=== PATIENT | female | born 1995 | race Caucasian/White ===

== ENCOUNTER 2020-07-27 14:56 | Emergency (ER) | payer OTHER, SELFPAY ==
--- NOTE | 2020-07-27 15:03 | ED.GENADULT ---
HPI - General Adult General Chief complaint: Animal Bite Stated complaint: cat scratch on left palm Time Seen by Provider: 07/27/20 15:04 Source: patient Mode of arrival: ambulatory Limitations: no limitations History of Present Illness HPI narrative: 25-year-old female patient presents to the [facility] with complaints of a cat bite to the left palm. Patient states that it was her cat that bit her yesterday. Patient states that she was trying to get her cat who was caught on a dresser off and the cat got scared and excellently bit her. Patient states the cat is up-to-date on all the vaccines she is aware of. Patient states that she did clean the wound with some soap and water and put some Neosporin on it today. Patient states the pain she describes as throbbing. Related Data Allergies Allergy/AdvReac Type Severity Reaction Status Date / Time amoxicillin Allergy Hives Verified 07/27/20 15:23 cephapirin Allergy Anaphylaxis Verified 07/27/20 15:23 Review of Systems Review of Systems: Narrative: CONSTITUTIONAL: Denies fever, chills, or sweats. EYES: Denies visual changes, redness, or discharge. ENT: Denies rhinorrhea, congestion, sore throat, or otalgia. CARDIOVASCULAR: Denies chest pain, palpitations, or edema. RESPIRATORY: Denies cough or dyspnea. GASTROINTESTINAL: Denies abdominal pain, nausea, vomiting, or diarrhea. GENITOURINARY: Denies dysuria or hematuria. SKIN: Denies rash or itching. Positive cat bite to left palm MUSCULOSKELETAL: Denies back pain, joint pain, or myalgia. NEUROLOGIC: Denies headache, numbness, or weakness. PSYCHIATRIC: Denies anxiety or depression. PMFSH Comments At the time of my signature I agree with nursing past medical history, surgical, social, and family history. There is no relevant family history pertinent to the presenting complaint. Exam Narrative: Exam Narrative: GENERAL: Well-appearing, well-nourished, and in no acute distress. HEAD: Normocephalic, atraumatic. EYES: PERRLA and EOMI. ENT: Nares clear, no rhinorrhea or epistaxis. Mucous membranes moist. NECK: Supple. No lymphadenopathy CHEST: Clear to auscultation. No respiratory distress. HEART: Regular rate and rhythm. No murmur heard. Normal peripheral pulses. ABDOMEN: Soft, nontender, nondistended, normal active bowel sounds. EXTREMITIES: Normal range of motion. No edema. SKIN: Warm, dry, no rash. Patient has 2 small puncture wounds noted to the left arm in the middle of the radial and ulnar sides. No active bleeding at this time. There is some slight erythema around it but no active discharge. NEURO: No focal deficits. Alert and oriented x3. Course Vital Signs Vital signs: Vital Signs Temperature 37.5 C 07/27/20 15:21 Pulse Rate 83 07/27/20 15:21 Respiratory Rate 18 07/27/20 15:21 Blood Pressure 125/71 07/27/20 15:21 Pulse Oximetry 100 07/27/20 15:21 Temperature 37.5 C 07/27/20 15:21 Pulse Rate 83 07/27/20 15:21 Respiratory Rate 18 07/27/20 15:21 Blood Pressure 125/71 07/27/20 15:21 Pulse Oximetry 100 07/27/20 15:21 Vital signs reviewed Medical Decision Making Differential Diagnosis Differential Diagnosis: Differential diagnosis: Abscess, cellulitis, hidradenitis, laceration, puncture wound. Discussed with patient that since she did have a tetanus shot about a year ago we do not need to update her today. Discussed with patient that we will discharge her home with some antibiotics for the cat bite to decrease risk of worsening infection I encouraged her to continue cleaning it with soapy water, putting Neosporin on it and keeping it covered as she has been. Patient verbalized understanding. Discussed with her she can also take Tylenol and ibuprofen as needed for the pain. Patient verbalized understanding denies any other questions or concerns at this time. Vital Signs Vital Signs: Vital Signs Temperature 37.5 C 07/27/20 15:21 Pulse Rate 83 07/27/20 15:21 Respiratory Rate 18
[2020-07-27 15:21] VITALS: BP 125/71; PULSE 83; RESP 18; TEMP 37.5; O2SAT 100
[2020-07-27 15:32] VITALS: BP 125/71; PULSE 83; RESP 18; TEMP 37.5; O2SAT 100
== END 2020-07-27 15:47 | disposition home or self-care (01) ==
PROVIDERS: Emergency Provider Nurse Practitioner Family; PCP Nurse Practitioner Family
DX: S61.432A Puncture wound without foreign body of left hand, initial encounter (principal); W55.01XA Bitten by cat, initial encounter; K31.84 Gastroparesis
CPT/HCPCS: 99213; G0463

== ENCOUNTER 2020-10-31 13:53 | Emergency (ER) | payer OTHER, SELFPAY ==
[2020-10-31 13:56] VITALS: BP 123/84; PULSE 75; RESP 20; TEMP 37.2; O2SAT 100
--- NOTE | 2020-10-31 13:59 | ED.SKABFB ---
HPI - Skin/Abscess/Foreign Bdy General Chief complaint: Skin/Abscess/Foreign Body Stated complaint: Infected nipple piercing Time Seen by Provider: 10/31/20 14:00 Source: patient and RN notes reviewed History of Present Illness HPI narrative: Patient is a 25-year-old female who presents the urgent care with complaints of a possible infection to the right nipple ring. Patient states that she noticed a couple days ago that she was having some drainage from the nipple ring. Patient states that the right nipple ring is always been more irritated but denies of any past infections. Patient states that she was unable to make it to her doctor's appointment today at 1230 and was told to go to the urgent care. Patient has not put anything [id number] on the area except for the use of antibacterial soap. Denies of any fevers, nausea, vomiting. No other acute complaints. No acute distress noted. Patient aware of the plan of care. Some parts of this dictation were generated by voice recognition software and may contain typographical and/or grammatical inaccuracies. Related Data Home Medications Medication Instructions Recorded Confirmed lamotrigine 100 mg PO BID 10/31/20 10/31/20 levonorgestrel [Mirena] 1 device INTRAUTERINE ONCE 10/31/20 10/31/20 meloxicam 15 mg PO DAILY 10/31/20 10/31/20 minocycline 50 mg PO BID 10/31/20 10/31/20 propranolol 10 mg PO DAILY 10/31/20 10/31/20 Allergies Allergy/AdvReac Type Severity Reaction Status Date / Time Cephalosporins Allergy Severe Anaphylaxis Verified 10/31/20 14:05 amoxicillin Allergy Hives Verified 07/27/20 15:23 Review of Systems Review of Systems: Narrative: CONSTITUTIONAL: Denies fever, chills, or sweats. EYES: Denies visual changes, redness, or discharge. ENT: Denies rhinorrhea, congestion, sore throat, or otalgia. CARDIOVASCULAR: Denies chest pain, palpitations, or edema. RESPIRATORY: Denies cough or dyspnea. GASTROINTESTINAL: Denies abdominal pain, nausea, vomiting, or diarrhea. GENITOURINARY: Denies dysuria or hematuria. SKIN: Reports of drainage and redness to the right nipple ring MUSCULOSKELETAL: Denies back pain, joint pain, or myalgia. NEUROLOGIC: Denies headache, numbness, or weakness. All other systems reviewed are negative, except as documented in HPI. PMFSH Comments At the time of my signature, I reviewed and agree with the nursing past medical, surgical, social, and family history. There is no relevant family history pertinent to the patient complaint. Exam Narrative: Exam Narrative: GENERAL: This is a well-nourished, well-developed patient, in no apparent distress. HEAD: normocephalic, atraumatic. EYES: PERRL. Sclera clear/white. Vision is grossly intact. EARS: External ears normal NOSE: External nose normal with no obvious nasal discharge, nares without redness, no rhinorrhea. THROAT: Mucous membranes moist NECK: Neck supple CARDIOVASCULAR: Regular rate and rhythm without murmurs, gallops, or rubs. RESPIRATORY: Clear to auscultation. Breath sounds equal bilaterally. No wheezes, rales, or rhonchi. SKIN: Very mild erythema noted to the right nipple measuring approximately 0.25 cm with scant clear drainage NEURO: awake, alert, and oriented to person, place and time. There were no obvious focal neurologic abnormalities. EXTREMITIES: No clubbing, cyanosis, or edema. Course Vital Signs Vital signs: Vital Signs Temperature 98.9 F 10/31/20 13:56 Pulse Rate 75 10/31/20 13:56 Respiratory Rate 20 10/31/20 13:56 Blood Pressure 123/84 10/31/20 13:56 Pulse Oximetry 100 10/31/20 13:56 Temperature 98.9 F 10/31/20 13:56 Pulse Rate 75 10/31/20 13:56 Respiratory Rate 20 10/31/20 13:56 Blood Pressure 123/84 10/31/20 13:56 Pulse Oximetry 100 10/31/20 13:56 Reviewed MDM - Skin/Abscess/Foreign Bdy MDM Narrative Medical decision making narrative: Advised the patient to complete oral antibiotic regimen as prescribed. Use the prescripti
== END 2020-10-31 14:10 | disposition home or self-care (01) ==
PROVIDERS: Emergency Provider Nurse Practitioner Family; PCP Nurse Practitioner Family
DX: N61.0 Mastitis without abscess (principal); K31.84 Gastroparesis
CPT/HCPCS: 99213; G0463

== ENCOUNTER 2022-09-20 15:49 | Emergency (ER) | payer OTHER, SELFPAY ==
[2022-09-20 15:56] VITALS: BP 132/74; PULSE 86; RESP 14; TEMP 37.2; O2SAT 100
--- NOTE | 2022-09-20 16:05 | ED.URI ---
HPI - URI/Sore Throat General Chief Complaint: Upper Respiratory Infection Stated Complaint: Sore Throat Time Seen by Provider: 09/20/22 15:50 Source: patient and RN notes reviewed History of Present Illness HPI Narrative: Patient is a 27-year-old female presents to urgent care with complaints of a sore throat and runny nose. Patient states the runny nose started last Tuesday sore throat started on Tuesday. Patient has been taking Tylenol and did take Benadryl once for her symptoms. States that ?everyone at work has strep right now?. No other acute complaints. No acute distress noted. Patient aware of the plan of care. Some parts of this dictation were generated by voice recognition software and may contain typographical and/or grammatical inaccuracies. Related Data Home Medications Medication Instructions Recorded Confirmed lamotrigine 100 mg tablet 100 mg PO BID 10/31/20 10/31/20 levonorgestrel 21 mcg/24 hours (8 1 device intrauterine ONCE 10/31/20 10/31/20 yrs) 52 mg intrauterine device (Mirena) meloxicam 15 mg tablet 15 mg PO DAILY 10/31/20 10/31/20 minocycline 50 mg capsule 50 mg PO BID 10/31/20 10/31/20 propranolol 10 mg tablet 10 mg PO DAILY 10/31/20 10/31/20 bupropion HCl 100 mg tablet,12 hr mg PO 09/20/22 sustained-release buspirone 15 mg tablet mg 09/20/22 Allergies Allergy/AdvReac Type Severity Reaction Status Date / Time Cephalosporins Allergy Severe Anaphylaxis Verified 10/31/20 14:05 amoxicillin Allergy Hives Verified 07/27/20 15:23 Review of Systems Review of Systems: CONSTITUTIONAL: Denies fever, chills, or sweats. EYES: Denies visual changes, redness, or discharge. ENT: Reports rhinorrhea, sore throat, otalgia CARDIOVASCULAR: Denies chest pain, palpitations, or edema. RESPIRATORY: Denies cough or dyspnea. GASTROINTESTINAL: Denies abdominal pain, nausea, vomiting, or diarrhea. GENITOURINARY: Denies dysuria or hematuria. SKIN: Denies rash or itching. MUSCULOSKELETAL: Denies back pain, joint pain, or myalgia. NEUROLOGIC: Denies headache, numbness, or weakness. All other systems reviewed are negative, except as documented in HPI. PMFSH Comments At the time of my signature, I reviewed and agree with the nursing past medical, surgical, social, and family history. There is no relevant family history pertinent to the patient complaint. Exam Narrative: GENERAL: This is a well-nourished, well-developed patient, in no apparent distress. HEAD: normocephalic, atraumatic. EYES: PERRL. Sclera clear/white. Vision is grossly intact. EARS: External ears normal, auditory canals clear and without drainage, TMs normal without perforation. Hearing grossly intact. NOSE: External nose normal with no obvious nasal discharge, nares without redness, no rhinorrhea. THROAT: Mucous membranes moist, posterior pharynx clear. Mild postnasal drainage NECK: Neck supple, non-tender without lymphadenopathy RESPIRATORY: Clear to auscultation. Breath sounds equal bilaterally. No wheezes, rales, or rhonchi. SKIN: warm, intact with no suspicious lesions or rash, good texture and turgor. NEURO: awake, alert, and oriented to person, place and time. There were no obvious focal neurologic abnormalities. EXTREMITIES: No clubbing, cyanosis, or edema. Course Course Level of Care: Express Care Visit Vital Signs Vital signs: Vital Signs Temperature 98.9 F 09/20/22 15:56 Pulse Rate 86 09/20/22 15:56 Respiratory Rate 14 09/20/22 15:56 Blood Pressure 132/74 09/20/22 15:56 Pulse Oximetry 100 09/20/22 15:56 Oxygen Delivery Room Air 09/20/22 15:56 Temperature 98.9 F 09/20/22 15:56 Pulse Rate 86 09/20/22 15:56 Respiratory Rate 14 09/20/22 15:56 Blood Pressure 132/74 09/20/22 15:56 Pulse Oximetry 100 09/20/22 15:56 Oxygen Delivery Room Air 09/20/22 15:56 Reviewed MDM - URI/Sore Throat MDM Narrative Medical decision making narrative: Reviewed lab results with the attila
== END 2022-09-20 16:29 | disposition home or self-care (01) ==
PROVIDERS: Emergency Provider Nurse Practitioner Family; PCP Nurse Practitioner Family
DX: J02.9 Acute pharyngitis, unspecified (principal); K31.84 Gastroparesis
CPT/HCPCS: 87081; 87880; 99213; G0463